=== PATIENT | female | born 1965 | race Caucasian/White ===

== ENCOUNTER 2018-09-12 07:29 | Emergency (ER) | payer OTHER ==
[2018-09-12] MEDS ORDERED: FOLIC ACID INJ 1 MG, THIAMINE INJ 100 MG, MAGNESIUM SULFATE 2 GM, MULTIVITAMIN 10 ML in... IV STA ×5 (07:56)
--- NOTE | 2018-09-12 08:01 | ED Physician Documentation ---
PD HPI NVD - Stated complaint Stated Complaint: N/V/D - Chief complaint Chief Complaint: Abd Pain - History obtained from History obtained from: Patient, Family - History of Present Illness Timing - onset: How many days ago (3) Timing - duration: Days (3) Timing - details: Gradual onset, Still present Associated symptoms: Dizzy, Near syncope / syncope, Loss of appetite Contributing factors: No: Sick contact, Bad food, Travel, Recent antibiotics, Alcohol use, Anticoagulated, Diabetes Improved by: BM Similar symptoms before: Has not had sx before Recently seen: Not recently seen - Additonal information Additional information: 53-year-old female who is 14 years status post gastric bypass and has a history of chronic pain and is on Suboxone has usually been constipated and over the past 3 days she has developed flow through diarrhea. She has not had abdominal pain with this or cramping. She has had mucousy stool and watery stool. She is taking a lot of Pepto-Bismol yesterday and she has required the use of depends secondary to frequent accidents. She reports that her usual bowel habit is to have a bowel movement every 3-6 days and about 6-7 weeks ago this changed and her stool became softer and more regular and it was not until when she developed the diarrhea. Review of Systems Constitutional: reports: Fatigue. denies: Fever, Chills, Myalgias Eyes: denies: Decreased vision Ears: denies: Ear pain Nose: denies: Rhinorrhea / runny nose, Congestion Throat: denies: Sore throat Cardiac: denies: Chest pain / pressure, Palpitations Respiratory: denies: Dyspnea, Cough GI: reports: Nausea, Vomiting, Diarrhea. denies: Abdominal Pain : denies: Dysuria, Frequency Skin: denies: Rash Musculoskeletal: denies: Neck pain, Back pain, Extremity pain Neurologic: reports: Generalized weakness. denies: Focal weakness, Numbness PD PAST MEDICAL HISTORY - Present Medications Home Medications: Ambulatory Orders Medication Instructions Recorded Confirmed Buprenorphine HCl/Naloxone HCl 8 mg PO TID 09/12/18 09/12/18 [Suboxone 8 mg-2 mg Sl Film] Omeprazole Magnesium [Prilosec] 10 mg PO DAILY 09/12/18 09/12/18 Ondansetron Odt [Zofran] 4 mg TL Q6H PRN #10 tablet 09/12/18 Quetiapine Fumarate [Seroquel] 50 mg PO DAILY 09/12/18 09/12/18 raNITIdine [Zantac] 150 mg PO DAILY 09/12/18 09/12/18 - Allergies Allergies/Adverse Reactions: Allergies Allergy/AdvReac Type Severity Reaction Status Date / Time cephalexin [From Keflex] Allergy Unknown Verified 09/12/18 07:58 erythromycin base Allergy Unknown Verified 09/12/18 07:58 latex Allergy Unknown Verified 09/12/18 07:58 Sulfa (Sulfonamide Allergy Unknown Verified 09/12/18 07:58 Antibiotics) tetracycline Allergy Unknown Verified 09/12/18 07:58 all cillins Allergy Unknown Uncoded 09/12/18 07:58 PD ED PE NORMAL - Vitals Vital signs reviewed: Yes (hypertensive mild) - General General: Alert and oriented X 3, No acute distress, Well developed/nourished - HEENT HEENT: Atraumatic, PERRL, EOMI - Neck Neck: Supple, no meningeal sign, No bony TTP - Cardiac Cardiac: RRR, No murmur - Respiratory Respiratory: No respiratory distress, Clear bilaterally - Abdomen Abdomen: Soft, Non tender - Back Back: No CVA TTP, No spinal TTP - Derm Derm: Normal color, Warm and dry, No rash - Extremities Extremities: No deformity, No edema - Neuro Neuro: Alert and oriented X 3, opthalmic tech 2-12 intact, No motor deficit, No sensory deficit, Normal speech Eye Opening: Spontaneous Motor: Obeys Commands Verbal: Oriented GCS Score: 15 - Psych Psych: Normal mood, Normal affect Results - Vitals Vitals: Vital Signs - 24 hr 09/12/18 09/12/18 09/12/18 07:37 08:53 10:04 Temperature 36.8 C 36.8 C Heart Rate 90 70 69 Respiratory 14 16 18 Rate Blood Pressure 140/80 H 108/67 97/60 O2 Saturation 96 97 98 Oxygen O2 Source Room air - Labs Labs: Microbiology 09/12/18 09:17 Clostridium difficile (PCR) - Final Stool 09/12/18 09:17 Campylobacter Antigen Assay - Final Stool Laboratory Tests 09/12/18 09/12/18 09/12/18 08:11 08:11 08:11 WBC 4.9 RBC 4.55 Hgb 12.2 Hct 36.8 L MCV 80.9 L MCH 26.7 L MCHC 33.1 RDW 15.7 H Plt Count 219 MPV 8.3 Neut # (Auto) 3.5 Lymph # (Auto) 0.8 L [place] # (Auto) 0.6 Eos # (Auto) 0.1 Baso # (Auto) 0.0 Absolute Nucleated RBC 0.00 Nucleated RBC % 0.0 Sodium 136 Potassium 3.2 L Chloride 102 Carbon Dioxide 24 Anion Gap 10.0 BUN 19 Creatinine 0.6 Estimated GFR (MDRD) 105 Glucose 98 Lactic Acid Calcium 9.2 Total Bilirubin 0.4 AST 18 ALT < 10 L Alkaline Phosphatase 77 Troponin I < 0.04 Total Protein 7.7 Albumin 3.9 Globulin 3.8 Albumin/Globulin Ratio 1.0 Lipase 19 L Urine Color Urine Clarity Urine pH Ur Specific [place] Urine Protein Urine Glucose (UA) Urine Ketones Urine Occult Blood Urine Nitrite Urine Bilirubin Urine Urobilinogen Ur Leukocyte Esterase Urine RBC Urine WBC Ur Squamous Epith Cells Urine Bacteria Ur Microscopic Review Urine Culture Comments 09/12/18 09/12/18 08:11 08:27 WBC RBC Hgb Hct MCV MCH MCHC RDW Plt Count MPV Neut # (Auto) Lymph # (Auto) [place] # (Auto) Eos # (Auto) Baso # (Auto) Absolute Nucleated RBC Nucleated RBC % Sodium Potassium Chloride Carbon Dioxide Anion Gap BUN Creatinine Estimated GFR (MDRD) Glucose Lactic Acid 0.9 Calcium Total Bilirubin AST ALT Alkaline Phosphatase Troponin I Total Protein Albumin Globulin Albumin/Globulin Ratio Lipase Urine Color DARK YELLOW Urine Clarity HAZY Urine pH 6.0 Ur Specific [place] >=1.030 H Urine Protein TRACE Urine Glucose (UA) NEGATIVE Urine Ketones NEGATIVE Urine Occult Blood NEGATIVE Urine Nitrite NEGATIVE Urine Bilirubin NEGATIVE Urine Urobilinogen 0.2 (NORMAL) Ur Leukocyte Esterase TRACE H Urine RBC 0-5 Urine WBC 0-3 Ur Squamous Epith Cells FEW Squamous Urine Bacteria Few Ur Microscopic Review INDICATED Urine Culture Comments INDICATED Procedures - IVC sono (time) 0750 Bedside IVC sono: IVC measures (cm) (1.28), IVC collapsed c insp (cm) (complete), Dehydration (mild est 1 liter deficit) PD MEDICAL DECISION MAKING - ED course Complexity details: reviewed results, re-evaluated patient, considered differential, d/w patient, d/w family ED course: Previously well 53-year-old female with acute flow through diarrhea is mildly dehydrated on interrogation of the inferior vena cava and she has a history of gastric bypass has not been taking vitamins. She is administered a banana bag intravenously and we are anticipating a stool sample for evaluation. Her potassium is low and she is administered potassium orally and IV. My concern for this lady with a prior history of chronic constipation who now has diarrhea with mucous is the possibility of inflammatory bowel disease. I have shared by concern with the patient and recommend she take some immodium stay hydrated take extra potassium and follow up with her primary. Departure - Departure Disposition: Home, Self Care Clinical Impression: Dehydration Diarrhea Qualifiers: Diarrhea type: unspecified type Qualified Code(s): R19.7 - Diarrhea, unspecified Instructions: ED Dehydration, ED Gastroenteritis Report Pend Follow-Up: NEDA FERGUSON [Primary Care Provider] - Prescriptions: Ondansetron Odt [Zofran] 4 mg TL Q6H PRN #10 tablet PRN Reason: Nausea / Vomiting Comments: Today you have become dehydrated and had low potassium secondary to your diarrhea. I recommend that you use some Imodium to slow the diarrhea down, eat foods that are rich in potassium, and drink extra fluids. Cultures are pending on the stool. Follow up with your primary.
[2018-09-12 08:26] LABS: BASOPHILS % (AUTO) 0.4 %; EOSINOPHILS # (AUTO) 0.1 10^3/uL (0.0-0.7); EOSINOPHILS % (AUTO) 1.2 %; HGB - HEMOGLOBIN 12.2 g/dL (12.0-16.0); LYMPHOCYTES # (AUTO) 0.8 10^3/uL (1.5-3.5); LYMPHOCYTES % (AUTO) 15.3 %; MEAN CORPUSCULAR HEMOGLOBIN 26.7 pg (27.0-31.0); MEAN CORPUSCULAR HGB CONC 33.1 g/dL (32.0-36.0); MEAN CORPUSCULAR VOLUME 80.9 fL (81.0-99.0); MEAN PLATELET VOLUME 8.3 fL (7.9-10.8); MONOCYTES # (AUTO) 0.6 10^3/uL (0.0-1.0); MONOCYTES % (AUTO) 11.8 %; NEUTROPHILS # (AUTO) 3.5 10^3/uL (1.5-6.6); NEUTROPHILS % (AUTO) 71.3 %; PLT - PLATELET COUNT 219 10^3/uL (130-450); RED BLOOD COUNT 4.55 10^6/uL (4.20-5.40); RED CELL DISTRIBUTION WIDTH 15.7 % (12.0-15.0); WHITE BLOOD COUNT 4.9 x10^3/uL (4.8-10.8)
[2018-09-12 08:39] LABS: GLUCOSE, URINE (UA) NEGATIVE (NEGATIVE); KETONES,URINE (UA) NEGATIVE (NEGATIVE); LEUKOCYTE ESTERASE, URINE TRACE (NEGATIVE); NITRITE,URINE NEGATIVE (NEGATIVE); OCCULT BLOOD,URINE NEGATIVE (NEGATIVE); PROTEIN,URINE TRACE mg/dL (NEGATIVE); UROBILINOGEN,URINE 0.2 (NORMAL) E.U./dL (NORMAL)
[2018-09-12 08:40] LABS: ALBUMIN 3.9 g/dL (3.2-5.5); ALKALINE PHOSPHATASE 77 IU/L (42-121); ALT ALANINE AMINOTRANSFERASE < 10 IU/L (10-60); AST ASPARTATE AMINOTRANSFERASE 18 IU/L (10-42); BILIRUBIN,TOTAL 0.4 mg/dL (0.2-1.0); BUN - BLOOD UREA NITROGEN 19 mg/dL (6-20); CALCIUM 9.2 mg/dL (8.5-10.3); CARBON DIOXIDE - CO2 24 mmol/L (21-32); CHLORIDE 102 mmol/L (101-111); CREATININE 0.6 mg/dL (0.4-1.0); GFR - MDRD 105 (>89); GLUCOSE 98 mg/dL (70-100); LIPASE 19 U/L (22-51); SODIUM 136 mmol/L (135-145); TOTAL PROTEIN 7.7 g/dL (6.7-8.2)
[2018-09-12] MEDS ORDERED: POTASSIUM CHLOR 10 MEQ/100 ML 10 MEQ/100 ML BAG IV ONE (08:41)
[2018-09-12] MEDS ORDERED: POTASSIUM BICARB 25 MEQ TABLET PO STA (08:41)
[2018-09-12 08:53] LABS: CLARITY,URINE HAZY (CLEAR)
[2018-09-12 08:54] LABS: BACTERIA,URINE Few /HPF (None Seen); BILIRUBIN,URINE NEGATIVE (NEGATIVE); ICTOTEST,URINE NEGATIVE; RBC,URINE 0-5 /HPF (0-5); SQUAMOUS EPITHELIAL CELL,UR FEW Squamous (<= Few)
[2018-09-12] MEDS ORDERED: ONDANSETRON 4 MG/2 ML VIAL IVP STA (09:28)
[2018-09-12 12:36] VITALS: BP 103/67
== END 2018-09-12 12:36 | disposition home or self-care (01) ==
LOC: ED 07:29
DX: E86.0 Dehydration (principal); R19.7 Diarrhea, unspecified; E87.6 Hypokalemia
CPT/HCPCS: 36415; 80053; 81001; 83605; 83690; 84484; 85025; 87045; 87046; 87077; 87086; 87493; 96365; 96366; 96367; 96375; 99283; A9270; J3411; 81003